=== PATIENT | male | born 1945 | race Caucasian/White ===

== ENCOUNTER 2016-11-19 07:17 | Day surgery (SDC) | payer MEDICARE, OTHER ==
[~2016-11-19] VITALS: Ht 193 cm; Wt 99.8 kg
[~2016-11-19 07:17] MED LIST: AMLO10TA2 PO; ASPI81TA85 PO; BENA25CA2 PO; BENA40TA2 PO; CENTTAB PO; DIGO0.25 PO; ELIQ5TAB PO; ESTETAB PO; FOLI1TAB2 PO; LANO250T15 PO; LEVA500T PO; LEVA750T PO; LISI2.5T3 PO; LISI25TA OR; LOPR1TAB6 PO; MAGN400T5 PO; SPIR25TA2 PO; VITA10002 PO; VITA100037 PO
[2016-11-19] MEDS ORDERED: LR 1,000 ML IV ONE (07:30)
[2016-11-19] MEDS ORDERED: LR 1,000 ML IV SCH ×2 (08:30→12:45)
[2016-11-19] MEDS ORDERED: PROPOFOL 500 MG/50 ML VIAL As Ordered ONE (09:56)
[2016-11-19] MEDS ORDERED: MIDAZOLAM INJ 2 MG/2 ML VIAL (J2250) As Ordered ONE (09:56)
[2016-11-19] MEDS ORDERED: fentaNYL 100 MCG/2 ML INJECTION (J3010) As Ordered ONE (09:56)
[2016-11-19] MEDS ORDERED: LIDOCAINE 1% SDV INJ 30 ML VIAL As Ordered ONE (10:15)
[2016-11-19] MEDS ORDERED: fentaNYL 100 MCG/2 ML INJECTION (J3010) IV PRN (12:45)
--- NOTE | 2016-11-19 12:56 | REP ---
Portable chest, single AP view, 11/19/2016, 12:33 p.m., post op, post pacemaker: Comparison is 03/10/2014. There is a dual chamber pacemaker entering from the left as an interval change. There are surgical clips adjacent to the pacemaker pack. The pacing tips are in satisfactory locations on this single view. There is no pneumothorax or pleural fluid collection. Lung mariano are clear. Cardiac size is normal. Signed by Everton Wynn MD 11/19/2016 12:48 P
[2016-11-19] MEDS ORDERED: ACETAMINOPHEN TAB 650MG DOSE (2X325MG) PO PRN (13:00)
[2016-11-19] MEDS: PERCOCET 5MG/325MG TAB PO PRN ×2 (13:37→15:20)
--- NOTE | 2016-11-19 13:37 | RO ---
DATE OF PROCEDURE: 11/19/2016 PREOPERATIVE DIAGNOSES: 1. Tachy-jacqui syndrome. 2. Paroxysmal atrial fibrillation with rapid ventricular response. POSTOPERATIVE DIAGNOSES: 1. Tachy-jacqui syndrome. 2. Paroxysmal atrial fibrillation with rapid ventricular response. PROCEDURE PERFORMED: Implantation of permanent dual-chamber pacemaker. IMPLANTING COAL BRIQUETTE MACHINE OPERATOR: Dr. Otis Desai ANESTHESIOLOGIST: Dr. Liu ANESTHESIA: Monitored local anesthesia. 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 He has been followed on a regular basis through my office and recently was seen to have a resting heart rate in the 40s. A Holter monitor was performed on and this showed impressive sinus bradycardia during wakeful hours with rates in the 30s with lowest rate 32 beats per minute at 10:14 a.m,, fastest rate 96 bpm at 2:20 p.m. and average rate 52 bpm. On his current medications, he had rare isolated PACs and no current PSVT and occasional isolated PVCs. In light of his marked diurnal bradycardia and need for his negative chronotropic therapy, permanent dual-chamber pacemaker implantation was recommended. The patient has been free of any chest pain, shortness of breath, palpitations, embolic phenomenon, current combination medical therapy. He sleeps well with his C-PAP. Pleasant, tall, elderly male laying comfortably flat. Medium body build. Heart rate 44 bpm and regular, blood pressure 130/74 supine, respiratory rate 16 per minute, weight 219 pounds, height 76 inches, BMI 26.7. No pallor or cyanosis. Normal oral moisture. Trachea midline. Neck veins at the level of the sternal angle. Normal chest configuration with good air entry over both lung mariano. No abnormal adventitious sounds. Apical impulse lateral to the midclavicular line 5th intercostal space. S1 was soft. S2 was normal. S4 but no S3 gallop. Apical systolic murmur grade 2/6 radiating to the left axilla as well as the left lower sternal border, question separate systolic ejection murmur at the right base. No diastolic murmur. Normal carotid upstroke and volume. Normal pedal pulses with no pedal edema. EKG 11/04/2016 showed sinus bradycardia at 43 bpm with left axis deviation, LVH by Russell criteria, incomplete right bundle branch block and prominent R waves in V2-V4 suggestive of RVH versus prior posterior wall OK and no change from 03/2016. His blood work recently showed normal hemoglobin and white blood cell count. Last chemistry confirmed electrolyte balance with normal renal function. DESCRIPTION OF PROCEDURE: Following informed consent with the patient in the fasting state having received Ancef 2 grams IV premedication, he was taken to the operating theater. Numerous skin electrodes were applied to facilitate continuous electrocardiographic monitoring. Self-adhesive cardioverting/defibrillating pads were applied in anteroposterior configuration to faciliate mangement of recurrent atrial fibrillation should this be induced during placement of pacing leads. The left subclavian region was prepped and draped in usual fashion. The skin was infiltrated with 1% Xylocaine and the left axillary vein was catheterized using the micropuncture technique. A 5-cm linear incision was made several centimeters below and parallel to left clavicle. Dissection was carried down to the level of the pectoralis fascia and a pocket was fashioned below the level of the incision line. Two bipolar screw-in active fixation steroid eluding pacing leads were then positioned to the distal right ventricular septum and high right atrial appendage under fluoroscopic and electrocardiographic control. The ventricular lead ([employer]. model number [id number], serial number [id number]) measurements were: Stimulation threshold 0.8 volts/0.4 milliseconds/impedance, 708 ohms. The R wave amplitude measured 20.7 mV. By the time we reached the recovery room, repeat evaluation of his ventricular pacing threshold was dramatically improved at 0.5 V/0.4 ms with stable lead impedance and R wave amplitude. The atrial lead ([employer], model number [id number], serial number [id number]) measurements were: Stimulation threshold 1.8, V/0.4 ms/impedance 638 omhs. The P wave amplitude measured 2.5 mV. Similarly by the time we reached the recovery room, these values had significantly improved with pacing threshold dropping to 0.75 V/0.4 ms. Stable lead impedance and P wave amplitude increasing to 3.5 mV. These leads were secured in position with sleeves sutured at their insertion site. They were then connected to a dual-chamber pulse generator that was MRI compatible ([employer], model number [id number], serial number [id number]) and appropriate DDD pacing was documented. This generator was placed in the pocket and secured into position with a suture through the upper right-hand corner of the epoxy header. The subcutaneous tissues were approximated using a running Chromic suture and the skin was closed using chidi. Dry dressing was applied. The patient was returned to recovery room in good condition. No apparent complications. Estimated blood loss less than 50 mL. His postoperative portable upright chest x-ray showed good lead placement with no pneumothorax. Our plan is to monitor him on telemetry overnight and he will receive additional three doses of Ancef IV every 8 hours. We intend to obtain a PA left lateral chest x-ray and followup EKG tomorrow morning but anticipate his discharge prior to noon. DISCHARGE MEDICATIONS AND RECOMMENDATIONS: He will resume his customary no added salt diet. We will request that he perform only light activities of daily living with his left arm and avoid getting his incision wet until his chidi are removed in my office Sunday 11/26 at 3:45 p.m.. Should he notice any abnormal erythema, swelling or discharge, he has been encouraged to contact us promptly. His medications will be digoxin 0.25 mg daily, metoprolol 25 mg twice daily, lisinopril 2.5 mg daily, spironolactone 12.5 mg daily, magnesium oxide 400 mg by mouth twice daily, multivitamin one tablet daily and vitamin D3 2000 units by mouth daily. His Eliquis oral anticoagulation will be resumed 11/21/2016 and will continue at 5 mg twice daily. BETHEL
[2016-11-19] MEDS ORDERED: PERCOCET 5MG/325MG TAB As Ordered ONE (15:09)
[2016-11-19 16:00] VITALS: BP 150/78
[2016-11-19 16:30] VITALS: BP 157/82
[2016-11-19] MEDS: SPIRONOLACTONE 12.5MG PER 1/2 TABLET PO SCH (16:52)
[2016-11-19] MEDS: DOCUSATE SODIUM 100 MG CAP PO SCH ×2 (16:52→20:17)
[2016-11-19] MEDS: MAGNESIUM OXIDE 400 MG TAB (MAG-OX) PO SCH ×2 (16:53→21:04)
[2016-11-19] MEDS: MULTIVITAMINS/MINERALS THERAP 1 TAB PO SCH (16:53)
[2016-11-19 17:30] VITALS: BP 152/72
[2016-11-19] MEDS ORDERED: SLF 3 ML SYR IV PRN (17:45)
[2016-11-19] MEDS: ceFAZolin SOD 1 GM in D5W MINI-BAG PLUS 50 ML IV SCH (18:27)
[2016-11-19 18:30] VITALS: BP 148/58
[2016-11-19] MEDS: ACETAMINOPH W/CODEINE #3 TAB UD PO PRN (19:52)
[2016-11-19 20:00] VITALS: BP 118/53
[2016-11-19 20:45] VITALS: BP 135/76
[2016-11-19] MEDS ORDERED: LISINOPRIL *2.5 MG* TAB PO SCH (21:00)
[2016-11-19] MEDS: METOPROLOL TART 25 MG TABLET PO SCH (21:04)
[2016-11-19] MEDS: SLF 3 ML SYR IV SCH (21:08)
[2016-11-20] VITALS: BP 145/78
[2016-11-20] MEDS: ceFAZolin SOD 1 GM in D5W MINI-BAG PLUS 50 ML IV SCH ×2 (03:41→10:18)
[2016-11-20] MEDS: ACETAMINOPH W/CODEINE #3 TAB UD PO PRN (03:42)
[2016-11-20] MEDS: SLF 3 ML SYR IV SCH ×2 (03:55→10:18)
[2016-11-20 04:00] VITALS: BP 160/85
[2016-11-20 08:00] VITALS: BP 134/66
[2016-11-20 08:09] VITALS: BP 160/85
[2016-11-20] MEDS: MAGNESIUM OXIDE 400 MG TAB (MAG-OX) PO SCH (08:09)
[2016-11-20] MEDS: METOPROLOL TART 25 MG TABLET PO SCH (08:09)
[2016-11-20] MEDS: SPIRONOLACTONE 12.5MG PER 1/2 TABLET PO SCH (08:09)
[2016-11-20] MEDS: MULTIVITAMINS/MINERALS THERAP 1 TAB PO SCH (08:10)
[2016-11-20] MEDS: DOCUSATE SODIUM 100 MG CAP PO SCH (08:10)
[2016-11-20] MEDS ORDERED: DIGOXIN 0.25 MG TAB PO SCH (09:00)
--- NOTE | 2016-11-20 09:22 | REP ---
PA and lateral chest: Comparison is 11/19/2016. Dual-chamber pacemaker is again identified entering from the left with the pacing tips in satisfactory locations, unchanged. Surgical clips are again identified adjacent to the pacemaker pack. There is no pneumothorax or pleural fluid collection. The lung mariano are clear and unchanged. Cardiac size is normal. The epi, mediastinum, bony thorax are unremarkable. Impression: No interval change. Signed by Everton Wynn MD 11/20/2016 09:14 A
--- NOTE | 2016-11-20 12:58 | ECGEPIP ---
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
== END 2016-11-20 13:55 | disposition home or self-care (01) ==
LOC: M SDC 07:17 → M PCU 15:48 → M SDC 11-20 13:55
PROVIDERS: ATTEND Internal Medicine Cardiovascular Disease
DX: I49.5 Sick sinus syndrome (principal); I48.0 Paroxysmal atrial fibrillation; R94.31 Abnormal electrocardiogram [ECG] [EKG]; I11.9 Hypertensive heart disease without heart failure; I34.9 Nonrheumatic mitral valve disorder, unspecified; I35.9 Nonrheumatic aortic valve disorder, unspecified; I27.89 Other specified pulmonary heart diseases; G57.33 Lesion of lateral popliteal nerve, bilateral lower limbs; R06.83 Snoring; Z79.899 Other long term (current) drug therapy; Z79.01 Long term (current) use of anticoagulants; Z85.6 Personal history of leukemia; Z92.21 Personal history of antineoplastic chemotherapy
CPT/HCPCS: 33208; 71010; 71020; 76000; 93005; C1785; C1898; J0690; J2250; J3010

== ENCOUNTER → 2016-12-01 | Outpatient (CLI) | payer MEDICARE, OTHER ==
[2016-12-01 16:07] LABS: ALBUMIN 3.9 GM/DL (3.2-5.2); ANION GAP 5 MEQ/L (8-16); BLOOD UREA NITROGEN 18 MG/DL (7-18); CALCIUM LEVEL 9.7 MG/DL (8.8-10.2); CARBON DIOXIDE LEVEL 34 MEQ/L (21-32); CHLORIDE LEVEL 104 MEQ/L (98-107); CREATININE FOR GFR 1.13 MG/DL (0.70-1.30); GLOMERULAR FILTRATION RATE > 60.0 (>49); GLUCOSE, FASTING 168 MG/DL (80-110); PHOSPHORUS LEVEL 2.8 MG/DL (2.5-4.9); POTASSIUM SERUM 4.7 MEQ/L (3.5-5.1); SODIUM LEVEL 143 MEQ/L (136-145)
== END ==
LOC: M LAB 15:23
PROVIDERS: ATTEND Family Medicine
DX: E83.52 Hypercalcemia (principal); I11.9 Hypertensive heart disease without heart failure

== ENCOUNTER → 2017-02-13 | Outpatient (CLI) | payer MEDICARE, OTHER ==
[~2017-02-13] MED LIST changes: -BENA40TA2 PO; +BENA40TA7 PO; -FOLI1TAB2 PO; +FOLI1TAB4 PO; +LEVA1TAB2 PO; -LEVA500T PO; -LEVA750T PO; +LEVA750T7 PO; -VITA100037 PO; +VITA100067 PO
[2017-02-13 13:06] LABS: BASO % 0.6 % (0.0-1.0); EOS # 0.1 K/mm3 (0.0-0.50); LYMPH # 1.1 K/mm3 (1.5-4.5); LYMPH % 14.1 % (24.0-44.0); MEAN CORPUSCULAR HEMOGLOBIN 31.3 pg (27.0-33.0); MEAN CORPUSCULAR HGB CONC 33.9 g/dl (32.0-36.5); MEAN CORPUSCULAR VOLUME 92.5 fl (80.0-96.0); MONO # 0.5 K/mm3 (0.0-0.8); MONO % 6.9 % (0.0-5.0); NEUTROPHILS % 74.5 % (36.0-66.0); WHITE BLOOD COUNT 6.7 K/mm3 (4.0-10.0)
[2017-02-13 13:17] LABS: ALBUMIN/GLOBULIN RATIO 1.29 (1.00-1.93); ALKALINE PHOSPHATASE 69 U/L (45-117); ALT/SGPT 34 U/L (12-78); ANION GAP 5 MEQ/L (8-16); AST/SGOT 21 U/L (15-37); BILIRUBIN,TOTAL 1.1 MG/DL (0.2-1.0); BLOOD UREA NITROGEN 15 MG/DL (7-18); CALCIUM LEVEL 10.1 MG/DL (8.8-10.2); CARBON DIOXIDE LEVEL 31 MEQ/L (21-32); CHLORIDE LEVEL 106 MEQ/L (98-107); CHOLESTEROL LEVEL 161 MG/DL (<200); CREATININE FOR GFR 1.06 MG/DL (0.70-1.30); GLOMERULAR FILTRATION RATE > 60.0 (>49); GLUCOSE, FASTING 83 MG/DL (80-110); POTASSIUM SERUM 5.1 MEQ/L (3.5-5.1); SODIUM LEVEL 142 MEQ/L (136-145); TOTAL PROTEIN 7.1 GM/DL (6.4-8.2); TRIGLYCERIDES LEVEL 99 MG/DL (<150)
== END ==
LOC: M LAB 11:31
PROVIDERS: ATTEND Family Medicine
DX: I49.9 Cardiac arrhythmia, unspecified (principal); E11.9 Type 2 diabetes mellitus without complications; E55.9 Vitamin D deficiency, unspecified

== ENCOUNTER 2017-09-30 06:55 | Day surgery (SDC) | payer MEDICARE, OTHER ==
[~2017-09-30 06:55] MED LIST changes: +ACETAMINOPHEN 325 MG TAB PO; -AMLO10TA2 PO; -ASPI81TA85 PO; -BENA25CA2 PO; -BENA40TA7 PO; -CENTTAB PO; -DIGO0.25 PO; -ELIQ5TAB PO; -ESTETAB PO; -FOLI1TAB4 PO; -LANO250T15 PO; -LEVA1TAB2 PO; -LEVA750T7 PO; -LISI2.5T3 PO; -LISI25TA OR; -LOPR1TAB6 PO; -MAGN400T5 PO; +SLF 3 ML SYR IV; -SPIR25TA2 PO; -VITA10002 PO; -VITA100067 PO
[2017-09-30] MEDS ORDERED: PHENYLEPHRINE HCL 10 % OPHTH. SOL 5ML OD (07:00)
[2017-09-30] MEDS: CYCLOPENTOLATE 2% OPHTH SOLN 2ML BTL OD (08:21)
[2017-09-30] MEDS: LIDOCAINE 3.5 % 1ML OPHTH TOPICAL GEL OU (08:22)
[2017-09-30] MEDS: PHENYLEPHRINE 2.5% OPHTH SOL 2ML OD (08:22)
[2017-09-30] MEDS: TROPICAMIDE 1% OPHTH SOLN 2ML OD (08:22)
[2017-09-30] MEDS: OFLOXACIN 0.3 % (OCUFLOX) OPTH SOL 5ML OD (08:22)
[2017-09-30] MEDS ORDERED: MIDAZOLAM INJ 2 MG/2 ML VIAL (J2250) As Ordered (09:45)
[2017-09-30] MEDS ORDERED: fentaNYL 100 MCG/2 ML INJECTION (J3010) As Ordered (09:46)
[2017-09-30] MEDS: POVIDONE-IODINE 5% OPHTH PREP SOL 30ML As Ordered (10:10)
[2017-09-30] MEDS: LIDOCAINE 1% SDV 5 ML VIAL As Ordered (10:17)
[2017-09-30] MEDS: HEALON DUET (HEALON 10MG/ML 0.55ML & HEALON ENDOCOAT 30MG/ML 0.85ML) As Ordered (10:17)
[2017-09-30] MEDS: MOXIFLOXACIN IN BSS 0.25MG/0.25ML INTRACAMERAL INJ (OR EYE ONLY)(J2280) As Ordered (10:17)
[2017-09-30] MEDS: BSS with VANC/TOB/EPI for EYE CASES IR (10:18)
[2017-09-30] MEDS: TRIAMCINOLONE PRES FR 40 MG/ML 1ML(TRIESENCE)(OR EYE ONLY)(J3300 PER 1MG) As Ordered (10:18)
[2017-09-30] MEDS ORDERED: AcetaZOLAMIDE 500 MG ER CAP As Ordered (11:06)
[2017-09-30] MEDS: AcetaZOLAMIDE 500 MG ER CAP PO (11:15)
[2017-09-30] MEDS ORDERED: TRIMETHOBENZAMIDE 300 MG CAP PO (11:30)
== END 2017-09-30 11:25 | disposition home or self-care (01) ==
LOC: M SDC 06:55
DX: H26.9 Unspecified cataract (principal); I48.91 Unspecified atrial fibrillation; I10 Essential (primary) hypertension; Z95.0 Presence of cardiac pacemaker; G47.30 Sleep apnea, unspecified; Z85.6 Personal history of leukemia; Z92.21 Personal history of antineoplastic chemotherapy; Z79.899 Other long term (current) drug therapy; Z79.01 Long term (current) use of anticoagulants
CPT/HCPCS: 66984

== ENCOUNTER 2017-10-07 09:01 | Day surgery (SDC) | payer MEDICARE, OTHER ==
[~2017-10-07 09:01] MED LIST changes: +BSS with VANC/TOB/EPI for EYE CASES IR; +HEALON DUET (HEALON 10MG/ML 0.55ML & HEALON ENDOCOAT 30MG/ML 0.85ML) As Ordered; +LIDOCAINE 1% SDV 5 ML VIAL As Ordered; +MOXIFLOXACIN IN BSS 0.25MG/0.25ML INTRACAMERAL INJ (OR EYE ONLY)(J2280) As Ordered; +PHENYLEPHRINE HCL 10 % OPHTH. SOL 5ML OS; +POVIDONE-IODINE 5% OPHTH PREP SOL 30ML As Ordered; +PROPARACAINE 0.5% OPHTH SOL 15ML OS; -SLF 3 ML SYR IV; +TRIAMCINOLONE PRES FR 40 MG/ML 1ML(TRIESENCE)(OR EYE ONLY)(J3300 PER 1MG) As Ordered
[2017-10-07] MEDS ORDERED: KETOROLAC 0.5% OPHTH SOLN OS (09:15)
[2017-10-07] MEDS ORDERED: AcetaZOLAMIDE 500 MG ER CAP PO (09:15)
[2017-10-07] MEDS ORDERED: TRIMETHOBENZAMIDE 300 MG CAP PO (09:15)
[2017-10-07] MEDS: LIDOCAINE 3.5 % 1ML OPHTH TOPICAL GEL OU (09:26)
[2017-10-07] MEDS: PHENYLEPHRINE 2.5% OPHTH SOL 2ML OS (09:30)
[2017-10-07] MEDS: OFLOXACIN 0.3 % (OCUFLOX) OPTH SOL 5ML OS (09:30)
[2017-10-07] MEDS: CYCLOPENTOLATE 2% OPHTH SOLN 2ML BTL OS (09:30)
[2017-10-07] MEDS: TROPICAMIDE 1% OPHTH SOLN 2ML OS (09:30)
[2017-10-07] MEDS ORDERED: fentaNYL 100 MCG/2 ML INJECTION (J3010) As Ordered (10:10)
[2017-10-07] MEDS ORDERED: MIDAZOLAM INJ 2 MG/2 ML VIAL (J2250) As Ordered (10:10)
== END 2017-10-07 10:58 | disposition home or self-care (01) ==
LOC: M SDC 09:01
DX: H25.9 Unspecified age-related cataract (principal); I10 Essential (primary) hypertension; Z95.0 Presence of cardiac pacemaker; Z85.6 Personal history of leukemia; Z92.21 Personal history of antineoplastic chemotherapy; G47.30 Sleep apnea, unspecified; Z79.02 Long term (current) use of antithrombotics/antiplatelets; Z79.899 Other long term (current) drug therapy
CPT/HCPCS: 66984

== ENCOUNTER → 2018-02-23 | Outpatient (CLI) | payer MEDICARE, OTHER ==
[2018-02-23 08:58] LABS: BASO % 0.7 % (0.0-1.0); EOS # 0.1 10^3/uL (0.0-0.50); EOS % 1.4 % (0.0-3.0); HEMATOCRIT 43.8 % (42.0-52.0); HEMOGLOBIN 14.1 g/dl (13.5-17.5); IMMATURE GRANULOCYTE % 0.3 % (0-3.0); LYMPH # 0.8 10^3/uL (1.5-4.5); LYMPH % 14.2 % (24.0-44.0); MEAN CORPUSCULAR HEMOGLOBIN 30.8 pg (27.0-33.0); MEAN CORPUSCULAR HGB CONC 32.2 g/dl (32.0-36.5); MEAN CORPUSCULAR VOLUME 95.6 fl (80.0-96.0); MONO # 0.5 10^3/uL (0.0-0.8); MONO % 9.3 % (0.0-5.0); NEUTROPHILS # 4.3 10^3/uL (1.8-7.7); NEUTROPHILS % 74.1 % (36.0-66.0); PLATELET COUNT, AUTOMATED 239 10^3/uL (150-450); RED BLOOD COUNT 4.58 10^6/uL (4.30-6.10); RED CELL DISTRIBUTION WIDTH 12.8 % (11.5-14.5); WHITE BLOOD COUNT 5.8 10^3/uL (4.0-10.0)
[2018-02-23 09:34] LABS: ESTIMATED AVERAGE GLUCOSE 111 MG/DL (60-110); HEMOGLOBIN A1c 5.5 %
[2018-02-23 09:40] LABS: ALBUMIN 3.9 GM/DL (3.2-5.2); ALKALINE PHOSPHATASE 59 U/L (45-117); ALT/SGPT 23 U/L (12-78); ANION GAP 5 MEQ/L (8-16); AST/SGOT 15 U/L (7-37); BILIRUBIN,TOTAL 0.8 MG/DL (0.2-1.0); BLOOD UREA NITROGEN 17 MG/DL (7-18); CALCIUM LEVEL 9.5 MG/DL (8.8-10.2); CARBON DIOXIDE LEVEL 32 MEQ/L (21-32); CHLORIDE LEVEL 106 MEQ/L (98-107); CHOLESTEROL LEVEL 140 MG/DL (<200); CHOLESTEROL RISK RATIO 3.255 (<5); CREATININE FOR GFR 1.05 MG/DL (0.70-1.30); GLOMERULAR FILTRATION RATE > 60.0 (>42); GLUCOSE, FASTING 105 MG/DL (70-100); HDL CHOLESTEROL 43 MG/DL (>40); LDL CHOLESTEROL 83 MG/DL (<100); NON-HDL-C 97 MG/DL; POTASSIUM SERUM 4.7 MEQ/L (3.5-5.1); SODIUM LEVEL 143 MEQ/L (136-145); TOTAL PROTEIN 6.9 GM/DL (6.4-8.2); TRIGLYCERIDES LEVEL 71 MG/DL (<150)
[2018-02-23 11:45] LABS: ALBUMIN/GLOBULIN RATIO 0.77 (1.00-1.93)
== END ==
LOC: M LAB 08:10
DX: R94.4 Abnormal results of kidney function studies (principal); I48.91 Unspecified atrial fibrillation; H26.9 Unspecified cataract; G47.33 Obstructive sleep apnea (adult) (pediatric); Z95.0 Presence of cardiac pacemaker; Z79.899 Other long term (current) drug therapy
CPT/HCPCS: 80162

== ENCOUNTER → 2019-02-25 | Outpatient (REF) | payer MEDICARE, OTHER ==
[~2019-02-25] MED LIST changes: -ACETAMINOPHEN 325 MG TAB PO; +AMLO10TA5 PO; +ASPI81TA85 PO; +ATEN50TA2 PO; +BENA25CA2 PO; +BENA40TA7 PO; -BSS with VANC/TOB/EPI for EYE CASES IR; +CENTTAB PO; +CYAN100049 PO; +DIGO0.12 PO; +DIGO0.25 PO; +ELIQ5TAB PO; +ESTETAB PO; +FLAX1200 PO; +FOLI1TAB11 PO; -HEALON DUET (HEALON 10MG/ML 0.55ML & HEALON ENDOCOAT 30MG/ML 0.85ML) As Ordered; +LANO250T15 PO; +LEVA1TAB2 PO; +LEVA750T7 PO; -LIDOCAINE 1% SDV 5 ML VIAL As Ordered; +LISI-1046 PO; +LISI2.5T49 OR; +LOPR1TAB6 PO; +MAGN400T5 PO; -MOXIFLOXACIN IN BSS 0.25MG/0.25ML INTRACAMERAL INJ (OR EYE ONLY)(J2280) As Ordered; -PHENYLEPHRINE HCL 10 % OPHTH. SOL 5ML OS; -POVIDONE-IODINE 5% OPHTH PREP SOL 30ML As Ordered; -PROPARACAINE 0.5% OPHTH SOL 15ML OS; +SPIR-10 PO; -TRIAMCINOLONE PRES FR 40 MG/ML 1ML(TRIESENCE)(OR EYE ONLY)(J3300 PER 1MG) As Ordered; +VITA100067 PO; +VITA2000 PO; +VITA200015 PO
[2019-02-25 17:00] LABS: BASO # 0.1 10^3/uL (0.0-0.2); EOS # 0.1 10^3/uL (0.0-0.5); EOS % 1.8 % (0.0-3.0); HEMOGLOBIN 15.3 g/dl (13.5-17.5); LYMPH # 0.8 10^3/uL (1.5-5.0); LYMPH % 11.5 % (24.0-44.0); MEAN CORPUSCULAR HEMOGLOBIN 31.4 pg (27.0-33.0); MEAN CORPUSCULAR HGB CONC 32.6 g/dl (32.0-36.5); MEAN CORPUSCULAR VOLUME 96.3 fl (80.0-96.0); MONO # 0.5 10^3/uL (0.0-0.8); NEUTROPHILS # 5.3 10^3/uL (1.5-8.5); NEUTROPHILS % 77.4 % (36.0-66.0); PLATELET COUNT, AUTOMATED 282 10^3/uL (150-450); RED BLOOD COUNT 4.88 10^6/uL (4.30-6.10); WHITE BLOOD COUNT 6.8 10^3/uL (4.0-10.0)
[2019-02-25 17:08] LABS: ALBUMIN 4.4 GM/DL (3.2-5.2); ALT/SGPT 32 U/L (12-78); BILIRUBIN,TOTAL 1.7 MG/DL (0.2-1.0); BLOOD UREA NITROGEN 22 MG/DL (7-18); CALCIUM LEVEL 9.6 MG/DL (8.8-10.2); CARBON DIOXIDE LEVEL 29 MEQ/L (21-32); CHLORIDE LEVEL 104 MEQ/L (98-107); CHOLESTEROL LEVEL 159 MG/DL (<200); CHOLESTEROL RISK RATIO 3.533 (<5); CREATININE FOR GFR 1.04 MG/DL (0.70-1.30); GLOMERULAR FILTRATION RATE > 60.0 (>42); GLUCOSE, FASTING 92 MG/DL (70-100); HDL CHOLESTEROL 45 MG/DL (>40); LDL CHOLESTEROL 91 MG/DL (<100); NON-HDL-C 114 MG/DL; POTASSIUM SERUM 4.7 MEQ/L (3.5-5.1); SODIUM LEVEL 140 MEQ/L (136-145); TOTAL PROTEIN 7.4 GM/DL (6.4-8.2); TRIGLYCERIDES LEVEL 114 MG/DL (<150)
== END ==
LOC: M LAB REF 16:11
PROVIDERS: ATTEND Family Medicine
DX: Z00.00 Encounter for general adult medical examination without abnormal findings (principal); I48.91 Unspecified atrial fibrillation; Z80.42 Family history of malignant neoplasm of prostate; C91.40 Hairy cell leukemia not having achieved remission; G47.33 Obstructive sleep apnea (adult) (pediatric); Z95.0 Presence of cardiac pacemaker; I42.7 Cardiomyopathy due to drug and external agent; Z79.899 Other long term (current) drug therapy
CPT/HCPCS: 80053; 80061; 85027; G0103

== ENCOUNTER → 2019-11-15 | Outpatient (CLI) | payer MEDICARE, OTHER ==
[~2019-11-15] MED LIST changes: +BENA40TA5 PO; -BENA40TA7 PO; -DIGO0.12 PO; +DIGO0.123 PO; +DIGO0.253 PO; +FLAX1CAP5 PO; -LISI-1046 PO; +LISI2.5T2 PO; +MAGN400T2 PO; +MULTCAP PO; +VITA200012 PO
[2019-11-15 09:36] LABS: BASO # 0.1 10^3/uL (0.0-0.2); BASO % 0.9 % (0.0-1.0); EOS # 0.1 10^3/uL (0.0-0.5); EOS % 2.4 % (0.0-3.0); HEMATOCRIT 43.4 % (42.0-52.0); HEMOGLOBIN 14.1 g/dl (13.5-17.5); LYMPH # 0.8 10^3/uL (1.5-5.0); LYMPH % 13.8 % (24.0-44.0); MEAN CORPUSCULAR HEMOGLOBIN 30.7 pg (27.0-33.0); MEAN CORPUSCULAR HGB CONC 32.5 g/dl (32.0-36.5); MEAN CORPUSCULAR VOLUME 94.6 fl (80.0-96.0); MONO # 0.4 10^3/uL (0.0-0.8); MONO % 7.2 % (0.0-5.0); NEUTROPHILS # 4.4 10^3/uL (1.5-8.5); NEUTROPHILS % 75.5 % (36.0-66.0); PLATELET COUNT, AUTOMATED 229 10^3/uL (150-450); RED BLOOD COUNT 4.59 10^6/uL (4.30-6.10); WHITE BLOOD COUNT 5.8 10^3/uL (4.0-10.0)
[2019-11-15 11:48] LABS: ALBUMIN 3.8 GM/DL (3.2-5.2); ALT/SGPT 29 U/L (12-78); BILIRUBIN,TOTAL 1.1 MG/DL (0.2-1.0); BLOOD UREA NITROGEN 21 MG/DL (7-18); CALCIUM LEVEL 9.5 MG/DL (8.8-10.2); CARBON DIOXIDE LEVEL 31 MEQ/L (21-32); CHLORIDE LEVEL 105 MEQ/L (98-107); CREATININE FOR GFR 1.01 MG/DL (0.70-1.30); GLOMERULAR FILTRATION RATE > 60.0 (>42); GLUCOSE, FASTING 96 MG/DL (70-100); POTASSIUM SERUM 4.3 MEQ/L (3.5-5.1); SODIUM LEVEL 142 MEQ/L (136-145); TOTAL PROTEIN 6.9 GM/DL (6.4-8.2)
== END ==
LOC: M LAB 08:34
PROVIDERS: ATTEND Internal Medicine Hematology & Oncology
DX: C91.40 Hairy cell leukemia not having achieved remission (principal)

== ENCOUNTER → 2019-11-21 | Outpatient (CLI) | payer MEDICARE, OTHER ==
--- NOTE | 2019-11-21 16:42 | REP ---
LIMITED ABDOMINAL ULTRASOUND TO ASSES THE SPLEEN: The spleen measures 11.8 x 9.5 x 6.5 cm. There is no evidence of a splenic or perisplenic focal abnormality. There is no free fluid in the abdomen. The left kidney measures 11.5 x 5.1 x 5.2 cm and there is mild left-sided hydronephrosis. IMPRESSION: As above. Electronically Signed by Chan Mckee DO 11/21/2019 05:06 P
== END ==
LOC: M LRY 08:45
PROVIDERS: ATTEND Internal Medicine Hematology & Oncology
DX: C91.40 Hairy cell leukemia not having achieved remission (principal); N13.30 Unspecified hydronephrosis

== ENCOUNTER → 2020-02-13 | Outpatient (CLI) | payer MEDICARE, OTHER ==
[~2020-02-13] MED LIST changes: -AMLO10TA5 PO; +AMLO1TAB25 PO; -ASPI81TA85 PO; +ASPI81TA86 PO
[2020-02-13 13:13] LABS: BASO # 0.1 10^3/uL (0.0-0.2); BASO % 0.8 % (0.0-1.0); EOS # 0.2 10^3/uL (0.0-0.5); HEMATOCRIT 43.3 % (42.0-52.0); HEMOGLOBIN 14.2 g/dl (13.5-17.5); LYMPH % 16.6 % (24.0-44.0); MEAN CORPUSCULAR HEMOGLOBIN 31.5 pg (27.0-33.0); MEAN CORPUSCULAR HGB CONC 32.8 g/dl (32.0-36.5); MONO # 0.6 10^3/uL (0.0-0.8); MONO % 9.3 % (0.0-5.0); NEUTROPHILS # 4.2 10^3/uL (1.5-8.5); PLATELET COUNT, AUTOMATED 248 10^3/uL (150-450); RED BLOOD COUNT 4.51 10^6/uL (4.30-6.10)
[2020-02-13 13:38] LABS: ALBUMIN 4.1 GM/DL (3.2-5.2); ALT/SGPT 28 U/L (12-78); BILIRUBIN,TOTAL 1.1 MG/DL (0.2-1.0); BLOOD UREA NITROGEN 22 MG/DL (7-18); CALCIUM LEVEL 9.7 MG/DL (8.8-10.2); CARBON DIOXIDE LEVEL 31 MEQ/L (21-32); CHLORIDE LEVEL 105 MEQ/L (98-107); CHOLESTEROL LEVEL 151 MG/DL (<200); CHOLESTEROL RISK RATIO 3.973 (<5); CREATININE FOR GFR 1.08 MG/DL (0.70-1.30); GLOMERULAR FILTRATION RATE > 60.0 (>42); GLUCOSE, FASTING 88 MG/DL (70-100); HDL CHOLESTEROL 38 MG/DL (>40); LDL CHOLESTEROL 87 MG/DL (<100); NON-HDL-C 113 MG/DL; POTASSIUM SERUM 4.7 MEQ/L (3.5-5.1); PROSTATIC SPECIFIC AG MONITOR 0.83 NG/ML (< 4.00); SODIUM LEVEL 140 MEQ/L (136-145); TOTAL PROTEIN 7.2 GM/DL (6.4-8.2); TRIGLYCERIDES LEVEL 132 MG/DL (<150)
[2020-02-13 16:14] LABS: HEMOGLOBIN A1c 5.7 %
== END ==
LOC: M LAB 10:27
PROVIDERS: ATTEND Family Medicine
DX: I48.91 Unspecified atrial fibrillation (principal); I42.7 Cardiomyopathy due to drug and external agent; R97.20 Elevated prostate specific antigen [PSA]; N41.1 Chronic prostatitis; G47.33 Obstructive sleep apnea (adult) (pediatric); C91.40 Hairy cell leukemia not having achieved remission; Z95.0 Presence of cardiac pacemaker; Z80.42 Family history of malignant neoplasm of prostate; Z79.899 Other long term (current) drug therapy

== ENCOUNTER → 2020-06-12 | Outpatient (CLI) | payer MEDICARE, OTHER ==
[2020-06-12 10:28] LABS: BASO % 0.4 % (0.0-1.0); EOS # 0.1 10^3/uL (0.0-0.5); EOS % 0.8 % (0.0-3.0); HEMATOCRIT 45.8 % (42.0-52.0); HEMOGLOBIN 14.4 g/dl (13.5-17.5); LYMPH # 1.3 10^3/uL (1.5-5.0); LYMPH % 14.3 % (24.0-44.0); MEAN CORPUSCULAR HEMOGLOBIN 29.8 pg (27.0-33.0); MEAN CORPUSCULAR HGB CONC 31.4 g/dl (32.0-36.5); MEAN CORPUSCULAR VOLUME 94.8 fl (80.0-96.0); MONO # 0.9 10^3/uL (0.0-0.8); MONO % 10.1 % (0.0-5.0); NEUTROPHILS # 6.7 10^3/uL (1.5-8.5); PLATELET COUNT, AUTOMATED 282 10^3/uL (150-450); RED BLOOD COUNT 4.83 10^6/uL (4.30-6.10); WHITE BLOOD COUNT 9.1 10^3/uL (4.0-10.0)
[2020-06-12 10:44] LABS: CALCIUM LEVEL 9.3 MG/DL (8.8-10.2); CREATININE FOR GFR 1.59 MG/DL (0.70-1.30); GLOMERULAR FILTRATION RATE 45.8 (>42); MAGNESIUM LEVEL 2.8 MG/DL (1.8-2.4); POTASSIUM SERUM 4.7 MEQ/L (3.5-5.1)
== END ==
LOC: M LAB 09:54
PROVIDERS: ATTEND Physician Assistant
DX: I11.9 Hypertensive heart disease without heart failure (principal)

== ENCOUNTER → 2021-02-01 | Outpatient (CLI) | payer MEDICARE, OTHER ==
[~2021-02-01] MED LIST changes: +GABA-1171; -LISI2.5T2 PO; +LISI2.5T9 PO; +MULT-90 PO
== END ==
LOC: M LABSMTC 09:54
PROVIDERS: ATTEND Anesthesiology
DX: Z01.812 Encounter for preprocedural laboratory examination (principal); Z20.822 Contact with and (suspected) exposure to COVID-19

== ENCOUNTER 2021-02-06 11:16 | Day surgery (SDC) | payer MEDICARE, OTHER ==
[~2021-02-06] VITALS: Ht 193 cm; Wt 80.3 kg
[~2021-02-06 11:16] MED LIST changes: +NS 1,000 ML IV ONE
[2021-02-06] MEDS ORDERED: propofoL 200 MG/20 ML VIAL As Ordered ONE (12:19)
[2021-02-06] MEDS ORDERED: LIDOCAINE 2% 100MG/5ML SDV (FOR ANES.) As Ordered ONE (12:19)
--- NOTE | 2021-02-06 12:39 | ROOR ---
Patient Name: Jermaine Jones Procedure Date: 02/06/2021 12:14 PM Date of : 1945 Age: 75 Room: [facility] Gender: Male Note Status: Finalized Procedure: Colonoscopy Indications: High risk colon cancer surveillance: Personal history of colonic polyps Providers: Donnie Suresh Jr, MD Referring MD: Cony Gomez DO Requesting Provider: Medicines: Propofol per Anesthesia Complications: No immediate complications. Procedure: Pre-Anesthesia Assessment: - Prior to the procedure, a History and Physical was performed, and patient medications and allergies were reviewed. The patient is competent. The risks and benefits of the procedure and the sedation options and risks were discussed with the patient. All questions were answered and informed consent was obtained. Patient identification and proposed procedure were verified by the physician and the nurse in the pre-procedure area and in the procedure room. Mental Status Examination: alert and oriented. Airway Examination: normal oropharyngeal airway and neck mobility. Respiratory Examination: clear to auscultation. CV Examination: normal. ASA Grade Assessment: II - A patient with mild systemic disease. After reviewing the risks and benefits, the patient was deemed in satisfactory condition to undergo the procedure. The anesthesia plan was to use moderate sedation / analgesia (conscious sedation). Immediately prior to administration of medications, the patient was re-assessed for adequacy to receive sedatives. The heart rate, respiratory rate, oxygen saturations, blood pressure, adequacy of pulmonary ventilation, and response to care were monitored throughout the procedure. The physical status of the patient was re-assessed after the procedure. The Colonoscope was introduced through the anus and advanced to the cecum, identified by appendiceal orifice and ileocecal valve. The colonoscopy was performed without difficulty. The patient tolerated the procedure well. The quality of the bowel preparation was adequate. Findings: The rectum, recto-sigmoid colon, sigmoid colon, descending colon, ascending colon, cecum, appendiceal orifice and ileocecal valve appeared normal. A small polyp was found in the transverse colon. The polyp was removed with a hot snare. Resection and retrieval were complete. Non-bleeding hemorrhoids were found during endoscopy. The hemorrhoids were Grade II (internal hemorrhoids that prolapse but reduce spontaneously) and Grade III (internal hemorrhoids that prolapse but require manual reduction). Impression: - The rectum, recto-sigmoid colon, sigmoid colon, descending colon, ascending colon, cecum, appendiceal orifice and ileocecal valve are normal. - One small polyp in the transverse colon, removed with a hot snare. Resected and retrieved. - Non-bleeding hemorrhoids. Recommendation: - Discharge patient to home (ambulatory). - Repeat colonoscopy in 5 years for surveillance. Procedure Code(s): --- Professional --- 22398, Colonoscopy, flexible; with removal of tumor(s), polyp(s), or other lesion(s) by snare technique Diagnosis Code(s): --- Professional --- Z86.010, Personal history of colonic polyps K64.2, Third degree hemorrhoids K63.5, Polyp of colon CPT copyright 2019 [employer]. All rights reserved. The codes documented in this report are preliminary and upon baker pie review may be revised to meet current compliance requirements. Donnie Suresh MD Donnie Suresh Jr, MD 02/06/2021 12:38:57 PM Electronically signed by Donnie Suresh Jr, MD Number of Addenda: 0 Note Initiated On: 02/06/2021 12:14 PM Estimated Blood Loss: Estimated blood loss: none.
[2021-02-06 12:58] VITALS: BP 108/50
== END 2021-02-06 13:00 | disposition home or self-care (01) ==
LOC: M OPP 11:16
PROVIDERS: ATTEND Surgery
DX: Z86.010 Personal history of colon polyps (principal); D12.6 Benign neoplasm of colon, unspecified; K64.2 Third degree hemorrhoids; I48.91 Unspecified atrial fibrillation; I10 Essential (primary) hypertension; G47.30 Sleep apnea, unspecified; Z95.0 Presence of cardiac pacemaker; Z85.828 Personal history of other malignant neoplasm of skin; Z79.01 Long term (current) use of anticoagulants; Z79.899 Other long term (current) drug therapy

== ENCOUNTER → 2021-03-04 | Outpatient (CLI) | payer MEDICARE, OTHER ==
[~2021-03-04] MED LIST changes: -BENA40TA5 PO; +BENA40TA84 PO; -NS 1,000 ML IV ONE
[2021-03-04 10:57] LABS: BASO # 0.1 10^3/uL (0.0-0.2); BASO % 1.1 % (0.0-1.0); EOS # 0.2 10^3/uL (0.0-0.5); EOS % 3.3 % (0.0-3.0); HEMATOCRIT 43.1 % (42.0-52.0); HEMOGLOBIN 13.7 g/dl (13.5-17.5); LYMPH # 0.8 10^3/uL (1.5-5.0); MEAN CORPUSCULAR HEMOGLOBIN 30.6 pg (27.0-33.0); MEAN CORPUSCULAR HGB CONC 31.8 g/dl (32.0-36.5); MEAN CORPUSCULAR VOLUME 96.2 fl (80.0-96.0); MONO # 0.5 10^3/uL (0.0-0.8); MONO % 9.4 % (2.0-8.0); NEUTROPHILS # 3.9 10^3/uL (1.5-8.5); NEUTROPHILS % 71.8 % (36.0-66.0); PLATELET COUNT, AUTOMATED 226 10^3/uL (150-450); RED BLOOD COUNT 4.48 10^6/uL (4.30-6.10); WHITE BLOOD COUNT 5.4 10^3/uL (4.0-10.0)
[2021-03-04 11:20] LABS: HEMOGLOBIN A1c 5.4 %
[2021-03-04 11:28] LABS: ALBUMIN 3.6 GM/DL (3.2-5.2); ALT/SGPT 23 U/L (12-78); BLOOD UREA NITROGEN 20 MG/DL (7-18); CALCIUM LEVEL 9.6 MG/DL (8.8-10.2); CARBON DIOXIDE LEVEL 33 MEQ/L (21-32); CHLORIDE LEVEL 107 MEQ/L (98-107); CHOLESTEROL LEVEL 149 MG/DL (<200); CHOLESTEROL RISK RATIO 3.547 (<5); CREATININE FOR GFR 0.98 MG/DL (0.70-1.30); GLOMERULAR FILTRATION RATE > 60.0 (>42); GLUCOSE, FASTING 91 MG/DL (70-100); HDL CHOLESTEROL 42 MG/DL (>40); LDL CHOLESTEROL 86 MG/DL (<100); NON-HDL-C 107 MG/DL; POTASSIUM SERUM 4.9 MEQ/L (3.5-5.1); PROSTATIC SPECIFIC AG MONITOR 0.91 NG/ML (< 4.00); SODIUM LEVEL 143 MEQ/L (136-145); TOTAL PROTEIN 6.5 GM/DL (6.4-8.2); TRIGLYCERIDES LEVEL 104 MG/DL (<150)
[2021-03-04 11:34] LABS: MALB URINE SIEMENS 18.8 MG/L; MAU/CREAT RATIO 15.5 MCG/MG (0.0-30.0)
== END ==
LOC: M LAB 09:22
PROVIDERS: ATTEND Family Medicine
DX: I48.91 Unspecified atrial fibrillation (principal); E78.00 Pure hypercholesterolemia, unspecified; R97.20 Elevated prostate specific antigen [PSA]

== ENCOUNTER → 2022-02-20 | Outpatient (CLI) | payer MEDICARE, OTHER ==
[2022-02-20 09:40] LABS: BASO # 0.1 10^3/uL (0.0-0.2); BASO % 0.8 % (0.0-1.0); EOS # 0.2 10^3/uL (0.0-0.5); EOS % 3.3 % (0.0-3.0); HEMATOCRIT 42.7 % (42.0-52.0); HEMOGLOBIN 13.7 g/dl (13.5-17.5); LYMPH # 0.9 10^3/uL (1.5-5.0); LYMPH % 12.8 % (24.0-44.0); MEAN CORPUSCULAR HEMOGLOBIN 30.4 pg (27.0-33.0); MEAN CORPUSCULAR HGB CONC 32.1 g/dl (32.0-36.5); MEAN CORPUSCULAR VOLUME 94.9 fl (80.0-96.0); MONO # 0.7 10^3/uL (0.0-0.8); MONO % 9.2 % (2.0-8.0); NEUTROPHILS # 5.3 10^3/uL (1.5-8.5); NEUTROPHILS % 73.6 % (36.0-66.0); PLATELET COUNT, AUTOMATED 243 10^3/uL (150-450); WHITE BLOOD COUNT 7.2 10^3/uL (4.0-10.0)
[2022-02-20 10:51] LABS: HEMOGLOBIN A1c 5.6 %
[2022-02-20 10:59] LABS: ALT/SGPT 21 U/L (12-78); BILIRUBIN,TOTAL 1.4 MG/DL (0.2-1.0); BLOOD UREA NITROGEN 20 MG/DL (7-18); CALCIUM LEVEL 9.6 MG/DL (8.8-10.2); CARBON DIOXIDE LEVEL 30 MEQ/L (21-32); CHLORIDE LEVEL 107 MEQ/L (98-107); CHOLESTEROL LEVEL 142 MG/DL (<200); CHOLESTEROL RISK RATIO 3.463 (<5); CREATININE FOR GFR 1.14 MG/DL (0.70-1.30); GLOMERULAR FILTRATION RATE > 60.0 (>42); GLUCOSE, FASTING 91 MG/DL (70-100); HDL CHOLESTEROL 41 MG/DL (>40); LDL CHOLESTEROL 82 MG/DL (<100); NON-HDL-C 101 MG/DL; POTASSIUM SERUM 5.3 MEQ/L (3.5-5.1); PROSTATIC SPECIFIC AG MONITOR 1.01 NG/ML (< 4.00); SODIUM LEVEL 140 MEQ/L (136-145); TRIGLYCERIDES LEVEL 93 MG/DL (<150)
[2022-02-20 11:04] LABS: MALB URINE SIEMENS 40.2 MG/L; MAU/CREAT RATIO 30.9 MCG/MG (0.0-30.0)
== END ==
LOC: M LAB 08:49
PROVIDERS: ATTEND Family Medicine
DX: I48.91 Unspecified atrial fibrillation (principal); C91.40 Hairy cell leukemia not having achieved remission; G47.33 Obstructive sleep apnea (adult) (pediatric); Z95.0 Presence of cardiac pacemaker; B02.29 Other postherpetic nervous system involvement; R73.03 Prediabetes; Z79.899 Other long term (current) drug therapy

== ENCOUNTER → 2023-02-17 | Outpatient (CLI) | payer MEDICARE, OTHER ==
[2023-02-17 09:42] LABS: BASO # 0.1 10^3/uL (0.0-0.2); BASO % 0.8 % (0.0-1.0); EOS # 0.1 10^3/uL (0.0-0.5); EOS % 1.5 % (0.0-3.0); HEMATOCRIT 43.3 % (42.0-52.0); HEMOGLOBIN 13.9 g/dl (13.5-17.5); LYMPH % 10.3 % (24.0-44.0); MEAN CORPUSCULAR HEMOGLOBIN 30.8 pg (27.0-33.0); MEAN CORPUSCULAR HGB CONC 32.1 g/dl (32.0-36.5); MEAN CORPUSCULAR VOLUME 95.8 fl (80.0-96.0); MONO # 0.7 10^3/uL (0.0-0.8); MONO % 7.8 % (2.0-8.0); NEUTROPHILS # 7.3 10^3/uL (1.5-8.5); NEUTROPHILS % 79.2 % (36.0-66.0); PLATELET COUNT, AUTOMATED 263 10^3/uL (150-450); RED BLOOD COUNT 4.52 10^6/uL (4.30-6.10); WHITE BLOOD COUNT 9.2 10^3/uL (4.0-10.0)
[2023-02-17 10:09] LABS: PROSTATIC SPECIFIC AG MONITOR 1.01 NG/ML (< 4.00)
[2023-02-17 10:11] LABS: CREATININE, URINE 152.8 MG/DL; MAU/CREAT RATIO 35.3 MCG/MG (0.0-30.0)
[2023-02-17 10:13] LABS: ALBUMIN 3.8 G/DL (3.2-5.2); ALKALINE PHOSPHATASE 74 U/L (46-116); ALT/SGPT 17 U/L (7.0-40); AST/SGOT 8 U/L (<34); BILIRUBIN,TOTAL 1.2 MG/DL (0.3-1.2); BLOOD UREA NITROGEN 15 MG/DL (9-23); CALCIUM LEVEL 9.8 MG/DL (8.3-10.6); CARBON DIOXIDE LEVEL 31 MMOL/L (20-31); CHLORIDE LEVEL 105 MMOL/L (98-107); CHOLESTEROL LEVEL 133 MG/DL (<200); CHOLESTEROL RISK RATIO 3.46 (<5); CREATININE FOR GFR 1.02 MG/DL (0.70-1.30); GLOMERULAR FILTRATION RATE > 60.0 (>42); GLUCOSE, FASTING 99 MG/DL (74-106); HDL CHOLESTEROL 38.4 MG/DL (>40); LDL CHOLESTEROL 74.8 MG/DL (<100); NON-HDL-C 94.6 MG/DL; POTASSIUM SERUM 4.4 MMOL/L (3.5-5.1); SODIUM LEVEL 142 MMOL/L (136-145); TOTAL PROTEIN 6.6 G/DL (5.7-8.2); TRIGLYCERIDES LEVEL 99 MG/DL (<150)
== END ==
LOC: M LAB 09:12
PROVIDERS: ATTEND Family Medicine
DX: I48.91 Unspecified atrial fibrillation (principal); N52.9 Male erectile dysfunction, unspecified; Z95.0 Presence of cardiac pacemaker; B02.29 Other postherpetic nervous system involvement; R73.03 Prediabetes; I10 Essential (primary) hypertension; R97.20 Elevated prostate specific antigen [PSA]

== ENCOUNTER → 2023-11-23 | Outpatient (CLI) | payer MEDICARE, OTHER ==
[~2023-11-23] MED LIST changes: +SILD100T
[2023-11-23 11:34] LABS: BLOOD UREA NITROGEN 19 MG/DL (9-23); CALCIUM LEVEL 10.4 MG/DL (8.3-10.6); CARBON DIOXIDE LEVEL 33 MMOL/L (20-31); CHLORIDE LEVEL 105 MMOL/L (98-107); CREATININE FOR GFR 0.96 MG/DL (0.70-1.30); GLOMERULAR FILTRATION RATE > 60.0 (>42); GLUCOSE, FASTING 89 MG/DL (74-106); MAGNESIUM LEVEL 2.4 MG/DL (1.8-2.4); POTASSIUM SERUM 4.4 MMOL/L (3.5-5.1); SODIUM LEVEL 142 MMOL/L (136-145)
== END ==
LOC: M LAB 10:19
PROVIDERS: ATTEND Physician Assistant
DX: I48.0 Paroxysmal atrial fibrillation (principal); I11.9 Hypertensive heart disease without heart failure

== ENCOUNTER → 2024-02-18 | Outpatient (CLI) | payer MEDICARE, OTHER ==
[2024-02-18 11:04] LABS: BASO # 0.1 10^3/uL (0.0-0.2); BASO % 1.1 % (0.0-1.0); EOS # 0.2 10^3/uL (0.0-0.5); EOS % 3.1 % (0.0-3.0); HEMOGLOBIN 13.8 g/dl (13.5-17.5); LYMPH # 0.9 10^3/uL (1.5-5.0); LYMPH % 11.7 % (24.0-44.0); MEAN CORPUSCULAR HEMOGLOBIN 30.5 pg (27.0-33.0); MEAN CORPUSCULAR HGB CONC 32.9 g/dl (32.0-36.5); MEAN CORPUSCULAR VOLUME 92.7 fl (80.0-96.0); MONO # 0.6 10^3/uL (0.0-0.8); MONO % 7.9 % (2.0-8.0); NEUTROPHILS # 5.9 10^3/uL (1.5-8.5); NEUTROPHILS % 75.8 % (36.0-66.0); PLATELET COUNT, AUTOMATED 260 10^3/uL (150-450); RED BLOOD COUNT 4.53 10^6/uL (4.30-6.10); WHITE BLOOD COUNT 7.8 10^3/uL (4.0-10.0)
[2024-02-18 11:30] LABS: ALBUMIN 3.9 G/DL (3.2-5.2); ALKALINE PHOSPHATASE 69 U/L (46-116); ALT/SGPT 20 U/L (7.0-40); AST/SGOT 14 U/L (<34); BILIRUBIN,TOTAL 1.6 MG/DL (0.3-1.2); BLOOD UREA NITROGEN 20 MG/DL (9-23); CALCIUM LEVEL 10.5 MG/DL (8.3-10.6); CARBON DIOXIDE LEVEL 33 MMOL/L (20-31); CHLORIDE LEVEL 106 MMOL/L (98-107); CHOLESTEROL LEVEL 151 MG/DL (<200); CREATININE FOR GFR 1.04 MG/DL (0.70-1.30); GLOMERULAR FILTRATION RATE > 60.0 (>42); GLUCOSE, FASTING 96 MG/DL (74-106); HDL CHOLESTEROL 37.7 MG/DL (>40); LDL CHOLESTEROL 92.3 MG/DL (<100); NON-HDL-C 113.3 MG/DL; POTASSIUM SERUM 4.6 MMOL/L (3.5-5.1); SODIUM LEVEL 141 MMOL/L (136-145); TOTAL PROTEIN 6.7 G/DL (5.7-8.2); TRIGLYCERIDES LEVEL 105 MG/DL (<150)
[2024-02-18 11:31] LABS: PSA SCREENING 1.17 NG/ML (< 4.00)
== END ==
LOC: M LAB 10:20
PROVIDERS: ATTEND Family Medicine
DX: I48.91 Unspecified atrial fibrillation (principal); Z12.5 Encounter for screening for malignant neoplasm of prostate; E78.00 Pure hypercholesterolemia, unspecified
CPT/HCPCS: 36415; 80053; 80061; 85025; G0103

== ENCOUNTER → 2024-09-14 | Outpatient (CLI) | payer MEDICARE, OTHER | LOC: M CARPUL 10:53 | PROVIDERS: ATTEND Physician Assistant | DX: I77.810 Thoracic aortic ectasia (principal); I08.0 Rheumatic disorders of both mitral and aortic valves ==

== ENCOUNTER → 2025-02-28 | Outpatient (CLI) | payer MEDICARE, OTHER ==
[2025-02-28 10:22] LABS: BASO # 0.1 10^3/uL (0.0-0.2); BASO % 1.0 % (0.0-1.0); EOS # 0.2 10^3/uL (0.0-0.5); EOS % 2.2 % (0.0-3.0); LYMPH # 0.9 10^3/uL (1.5-5.0); LYMPH % 11.8 % (24.0-44.0); MONO # 0.6 10^3/uL (0.0-0.8); MONO % 8.4 % (2.0-8.0); NEUTROPHILS # 5.5 10^3/uL (1.5-8.5); NEUTROPHILS % 76.5 % (36.0-66.0); PLATELET COUNT, AUTOMATED 282 10^3/uL (150-450)
[2025-02-28 10:50] LABS: PSA SCREENING 1.38 NG/ML (< 4.00)
[2025-02-28 10:53] LABS: ALT/SGPT 21.0 U/L (7.0-40); AST/SGOT 20.0 U/L (<34); CALCIUM LEVEL 10.2 MG/DL (8.3-10.6); CARBON DIOXIDE LEVEL 32.0 MMOL/L (20-31); CHLORIDE LEVEL 105.0 MMOL/L (98-107); CHOLESTEROL LEVEL 121.0 MG/DL (<200); CHOLESTEROL RISK RATIO 2.63 (<5); CREATININE FOR GFR 1.16 MG/DL (0.70-1.30); GLOMERULAR FILTRATION RATE 64.9 (>42); LDL CHOLESTEROL 63.4 MG/DL (<100); NON-HDL-C 75.0 MG/DL; POTASSIUM SERUM 4.7 MMOL/L (3.5-5.1); SODIUM LEVEL 141.0 MMOL/L (136-145); TRIGLYCERIDES LEVEL 58.0 MG/DL (<150)
== END ==
LOC: M LAB 09:13
PROVIDERS: ATTEND Family Medicine
DX: I48.91 Unspecified atrial fibrillation (principal); E78.00 Pure hypercholesterolemia, unspecified; Z12.5 Encounter for screening for malignant neoplasm of prostate
CPT/HCPCS: 36415; 80053; 80061; 85025; G0103